=== PATIENT | female | born 1945 | race Caucasian/White ===

== ENCOUNTER 2018-05-05 21:13 | Inpatient (IN) | payer OTHER ==
--- NOTE | 2018-05-05 21:25 | EDPHY ---
H & P Time Seen by Provider: 05/05/18 21:25 Constitutional: Initial Vital Signs Temperature (C) 37.1 C 05/05/18 21:25 Heart Rate 93 05/05/18 21:25 Respiratory Rate 16 05/05/18 21:25 Blood Pressure 132/104 H 05/05/18 21:25 O2 Sat (%) 94 05/05/18 21:25 O2 Delivery Mode Room Air Allergies/Adverse Reactions: iodine [Iodine] Allergy (Severe, Verified 05/05/18 21:23) HIVES; THROAT SWELLING Sulfa (Sulfonamide Antibiotics) Allergy (Intermediate, Verified 05/05/18 21:23) GI UPSET Home Medications: Medication Instructions Recorded Aspirin [Amy Advanced] 1,000 mg PO 1200 PRN 05/05/18 Aspirin [Amy Advanced] 1,000 mg PO DAILY 05/05/18 Aspirin [Amy Advanced] 500 mg PO HS 05/05/18 Oxybutynin Chloride [Ditropan 5mg 5 mg PO TID 05/05/18 (RX)] Medical Decision Making ED Course/Re-evaluation: CHIEF COMPLAINT: MS Flare, weakness HISTORY OF PRESENT ILLNESS: The patient is a 72 y/o female with a history of MS arriving via EMS complaining of weakness and an MS flare. She reports that she has a mild exacerbation monthly and is followed by Dr. Collier, neurologist. However, the exacerbations have been worsening and more progressive for the last several months. She is not on any treatment for the MS as Dr. Collier told the patient that the steroids wouldn't work any more and she was allergic to the biological injectables. Yesterday she felt mostly normal and had mild weakness. When she woke up this morning she felt significantly more weak than normal. She had difficulty standing due to the weakness and has been unable to walk, which is abnormal. She reports that her right side is typically more weak than her left. She does take 1gm Aspirin daily for pain. No fever, headache, chest pain, shortness of breath, abdominal pain, urinary or bowel complaints. REVIEW OF SYSTEMS: A comprehensive 10 system review of systems is otherwise negative aside from elements mentioned in the history of present illness and medical decision making. PHYSICAL EXAM: HR, BP, O2 Sat, RR. Temp noted General Appearance: Unable to walk, alert, well hydrated, appropriate, and non- toxic appearing. Head: Atraumatic without scalp tenderness or obvious injury Eyes: Pupils equal, round, reactive to light and accommodation, EOMI, no trauma , no injection. Ears: Clear bilaterally, no perforation, normal landmarks Nose: Atraumatic, no rhinorrhea, clear. Throat: There is no erythema or exudates, no lesions, normal tonsils, mucus membranes moist. Neck: Supple, 2+ carotid upstroke, nontender, no lymphadenopathy. Respiratory: No retractions, no distress, no wheezes, and no accessory muscle use. Lungs are clear to auscultation bilaterally. Cardiovascular: Regular rate and rhythm, no murmurs, rubs, or gallops. Bilateral carotid, radial, dorsalis pedis, and posterior tibial pulses intact. Good capillary refill all extremities. Gastrointestinal: Abdomen is soft, nontender, non-distended, no masses, no rebound, no guarding, no peritoneal signs. Musculoskeletal: Normal active ROM of all extremities, atraumatic. Neurological: Global weakness, weak lower extremities, weak right arm, weak back muscles. Alert, appropriate, and interactive. The patient has normal DTRs and non-focal cranial nerves, and cerebellar exam. Skin: No rashes, good turgor, no nodules on palpation. Past medical history: MS Past surgical history: Denies Family history: Denies Social history: at bedside, lives in [place], retired DIAGNOSTICS/PROCEDURES/CRITICAL CARE TIME: Not indicated. DIFFERENTIAL DIAGNOSIS: The differential diagnosis for the patient's neurologic deficits included but was not limited to MS exacerbation, peripheral causes, central causes including CVA, TIA, electrolyte abnormalities and dehydration, cardiogenic causes, atypical causes like migraine syndrome. MEDICAL DECISION MAKING: The patient is a 72 y/o female with a history of MS arriving via EMS complaining of weakness and an MS flare. On exam she has global weakness including weakness ini her legs, right arm, and back muscles. This weakness is inhibiting her from walking. She reports that she can't take steroids as her neurologist, Dr. Collier, told her they wouldn't work any more. Labs ordered to ensure that there isn't an underlying infection or cause for the patient's weakness. 1gm Solu-Medrol and 1L IV NS administered. 213: I consulted with Dr. Grubbs, hospitalist, regarding this patient. She accepts admission of this patient. Neurology has been paged. 2135: I consulted with Dr. Quispe, neurologist from [facility], regarding this patient. He agrees with my plan to treat with Solu-Medrol 1000mg TID for three days, for the acute on chronic exacerbation. 2202: Reassessed patient and discussed plan for admission and Solu-Medrol. She is comfortable with this plan. Dr. Grubbs is in the room with the patient now. 2213: Reassessed patient, 40mg PO Protonix administered as she is taking over 1gm of Aspirin and I am now giving her steroids and has a BP with a systolic over 200. 10mg PO Zestril administered as her BP has a systolic pressure over 200. We will also place a catheter as she feels to weak to stand up to urinate. - Data Points Laboratory Results: Laboratory Results 05/05/18 21:43 05/05/18 21:43 05/05/18 05/05/18 21:43 21:43 WBC 8.03 10^3/uL 10^3/uL (3.80-9.50) RBC 3.88 10^6/uL L 10^6/uL (4.18-5.33) Hgb 12.5 g/dL L g/dL (12.6-16.3) Hct 36.7 % L % (38.0-47.0) MCV 94.6 fL fL (81.5-99.8) MCH 32.2 pg pg (27.9-34.1) MCHC 34.1 g/dL g/dL (32.4-36.7) RDW 15.4 % H % (11.5-15.2) Plt Count 316 10^3/uL 10^3/uL (150-400) MPV 11.7 fL fL (8.7-11.7) Neut % (Auto) 80.2 % H % (39.3-74.2) Lymph % (Auto) 9.0 % L % (15.0-45.0) [place] % (Auto) 9.1 % % (4.5-13.0) Eos % (Auto) 0.6 % % (0.6-7.6) Baso % (Auto) 1.0 % % (0.3-1.7) Nucleat RBC Rel Count 0.0 % % (0.0-0.2) Absolute Neuts (auto) 6.44 10^3/uL 10^3/uL (1.70-6.50) Absolute Lymphs (auto) 0.72 10^3/uL L 10^3/uL (1.00-3.00) Absolute Monos (auto) 0.73 10^3/uL 10^3/uL (0.30-0.80) Absolute Eos (auto) 0.05 10^3/uL 10^3/uL (0.03-0.40) Absolute Basos (auto) 0.08 10^3/uL 10^3/uL (0.02-0.10) Absolute Nucleated RBC 0.00 10^3/uL 10^3/uL (0-0.01) Immature Gran % 0.1 % % (0.0-1.1) Immature Gran # 0.01 10^3/uL 10^3/uL (0.00-0.10) Sodium 135 mEq/L mEq/L (135-145) Potassium 4.0 mEq/L mEq/L (3.5-5.2) Chloride 104 mEq/L mEq/L (97-110) Carbon Dioxide 24 mEq/l mEq/l (22-31) Anion Gap 7 mEq/L mEq/L (6-14) BUN 20 mg/dL mg/dL (7-23) Creatinine 0.7 mg/dL mg/dL (0.6-1.0) Estimated GFR > 60 Glucose 111 mg/dL H mg/dL (70-100) Calcium 9.0 mg/dL mg/dL (8.5-10.4) Medications Given: Methylprednisolone Sodium (Succinate 1,000 mg/ Dextrose) 100 mls @ 100 mls/hr IV EDNOW ONE Stop: 05/05/18 22:38 Last Admin: 05/05/18 22:03 Dose: 100 mls Discontinued Medications Sodium Chloride (Ns) 1,000 mls @ 0 mls/hr IV EDNOW ONE; Wide Open PRN Reason: Protocol Stop: 05/05/18 21:34 Last Admin: 05/05/18 21:52 Dose: 1,000 mls Departure - Departure Disposition: [facility] Acute Clinical Impression: Exacerbation of multiple sclerosis, Inability to walk Condition: Fair Report Scribed for: Gerardo Monte Report Scribed by: Cordelia Rocha Date of Report: 05/05/18 Time of Report: 21:26
[2018-05-05] MEDS ORDERED: NS 1,000 ML IV ONE (21:33)
[2018-05-05] MEDS ORDERED: methylPREDNISolone SOD SUCC 1,000 MG in D5W 100 ML IV ONE (21:39)
[2018-05-05] MEDS ORDERED: HYDROCODONE/APAP 5/325 TAB PO PRN (21:47)
[2018-05-05] MEDS ORDERED: PROMETHAZINE HCL 25 MG/ML INJ IVP PRN (21:47)
[2018-05-05] MEDS ORDERED: oxyCODONE IR 5 MG TAB PO PRN (21:47)
[2018-05-05] MEDS ORDERED: ONDANSETRON DISINTEGRATING 4 MG TAB PO PRN (21:47)
[2018-05-05] MEDS ORDERED: ONDANSETRON 4 MG/2 ML VIAL IVP PRN (21:47)
[2018-05-05] MEDS ORDERED: HYDROmorphONE/DILAUDID 1 MG/ML INJ IVP PRN (21:47)
[2018-05-05] MEDS ORDERED: PANTOPRAZOLE SODIUM 40 MG TAB PO ONE (22:12)
[2018-05-05 22:19] LABS: PLATELET COUNT 316 10^3/uL (150-400)
--- NOTE | 2018-05-05 22:33 | PDGENHP ---
History and Physical - Chief Complaint weakness - History of Present Illness 72 yo F with PMH of MS that has been present since she was in her 20s but has become progressive in the last 20 years presenting with 2 days of increasing weakness to the point where she is no longer able to even hold herself up. She states she has had similar bouts in the past, but never this severe or lasting this long. She did not have any preceding illness that she is aware of. She notes she has neurogenic bladder and issues with incontinence and retention and frequent UTIs, has had increased difficulty urinating today. She does have issues with frequent falls, she states she falls nearly daily, fell up to 5 times today. She uses a walker at baseline and has not had any fractures related to falls in the past. She did have a recent tooth infection that was treated with root canal, was started on abx but discontinued them due to feeling dizzy related to the medication. She does not have any pain or other sxs at the tooth anymore. Patient does have chronic pain and at home takes 2500mg aspirin daily for her pain, she denies having any stomach issues related to that or having a bleed in the past. She notes she is followed by neurology, Dr. Collier, she has been on medications for her MS in the past but had side effects or allergies to all of the meds so is no longer on any medication. She previously would do IV steroids with home health monthly and whenever she had a flare but she notes that her neurologist told her that steroids would no longer be effective for her so she is not doing that any longer. History Information - Allergies/Home Medication List Allergies/Adverse Reactions: iodine [Iodine] Allergy (Severe, Verified 05/05/18 21:23) HIVES; THROAT SWELLING Sulfa (Sulfonamide Antibiotics) Allergy (Intermediate, Verified 05/05/18 21:23) GI UPSET Home Medications: Aspirin [Amy Advanced] 1,000 mg PO 1200 PRN 05/05/18 [Last Taken Unknown] Aspirin [Amy Advanced] 1,000 mg PO DAILY 05/05/18 [Last Taken 05/05/18] Aspirin [Amy Advanced] 500 mg PO HS 05/05/18 [Last Taken Unknown] Oxybutynin Chloride [Ditropan 5mg (RX)] 5 mg PO TID 05/05/18 [Last Taken 08:00] I have personally reviewed and updated: family history, medical history, social history, surgical history - Past Medical History Additional medical history: MS x 50 years - Surgical History Reports: hysterectomy - Family History Positive for: cancer (lung cancer in mother), diabetes type I (brother) Additional family history: one sister and father with alcoholism, both parents - Social History Smoking Status: Former smoker Alcohol Use: Rarely Drug Use: None Additional social history: , lives independently with her Review of Systems Review of Systems: ROS: 10pt was reviewed & negative except for what was stated in HPI & below Physical Exam Physical Exam: Temp Pulse Resp BP Pulse Ox 37.1 C 92 18 200/155 H 96 05/05/18 21:25 05/05/18 22:03 05/05/18 22:03 05/05/18 22:03 05/05/18 22:03 Constitutional: chronically ill appearing, uncomfortable Eyes: PERRL, anicteric sclera Ears, Nose, Mouth, Throat: moist mucous membranes, hearing normal Cardiovascular: regular rate and rhythym, no murmur, rub, or gallop, No edema Respiratory: no respiratory distress, no rales or rhonchi Gastrointestinal: normoactive bowel sounds, soft, non-tender abdomen Genitourinary: no bladder tenderness Skin: warm, normal color Musculoskeletal: generalized weakness Neurologic: AAOx3, weakness Psychiatric: interacting appropriately, not anxious, depressed Lab Data & Imaging Review 05/05/18 21:43 05/05/18 21:43 WBC 8.03 10^3/uL (3.80-9.50) 05/05/18 21:43 RBC 3.88 10^6/uL (4.18-5.33) L 05/05/18 21:43 Hgb 12.5 g/dL (12.6-16.3) L 05/05/18 21:43 Hct 36.7 % (38.0-47.0) L 05/05/18 21:43 MCV 94.6 fL (81.5-99.8) 05/05/18 21:43 MCH 32.2 pg (27.9-34.1) 05/05/18 21:43 MCHC 34.1 g/dL (32.4-36.7) 05/05/18 21:43 RDW 15.4 % (11.5-15.2) H 05/05/18 21:43 Plt Count 316 10^3/uL (150-400) 05/05/18 21:43 MPV 11.7 fL (8.7-11.7) 05/05/18 21:43 Neut % (Auto) 80.2 % (39.3-74.2) H 05/05/18 21:43 Lymph % (Auto) 9.0 % (15.0-45.0) L 05/05/18 21:43 [place] % (Auto) 9.1 % (4.5-13.0) 05/05/18 21:43 Eos % (Auto) 0.6 % (0.6-7.6) 05/05/18 21:43 Baso % (Auto) 1.0 % (0.3-1.7) 05/05/18 21:43 Nucleat RBC Rel Count 0.0 % (0.0-0.2) 05/05/18 21:43 Absolute Neuts (auto) 6.44 10^3/uL (1.70-6.50) 05/05/18 21:43 Absolute Lymphs (auto) 0.72 10^3/uL (1.00-3.00) L 05/05/18 21:43 Absolute Monos (auto) 0.73 10^3/uL (0.30-0.80) 05/05/18 21:43 Absolute Eos (auto) 0.05 10^3/uL (0.03-0.40) 05/05/18 21:43 Absolute Basos (auto) 0.08 10^3/uL (0.02-0.10) 05/05/18 21:43 Absolute Nucleated RBC 0.00 10^3/uL (0-0.01) 05/05/18 21:43 Immature Gran % 0.1 % (0.0-1.1) 05/05/18 21:43 Immature Gran # 0.01 10^3/uL (0.00-0.10) 05/05/18 21:43 Sodium 135 mEq/L (135-145) 05/05/18 21:43 Potassium 4.0 mEq/L (3.5-5.2) 05/05/18 21:43 Chloride 104 mEq/L (97-110) 05/05/18 21:43 Carbon Dioxide 24 mEq/l (22-31) 05/05/18 21:43 Anion Gap 7 mEq/L (6-14) 05/05/18 21:43 BUN 20 mg/dL (7-23) 05/05/18 21:43 Creatinine 0.7 mg/dL (0.6-1.0) 05/05/18 21:43 Estimated GFR > 60 05/05/18 21:43 Glucose 111 mg/dL (70-100) H 05/05/18 21:43 Calcium 9.0 mg/dL (8.5-10.4) 05/05/18 21:43 Visualized and Interpreted Chest x-ray results: Yes Chest X-Ray results: no infiltrate Visualized and Interpreted EKG results: Yes EKG Interpretation: Positive for: normal sinsus rhythm Assessment & Plan Assessment: Exacerbation of multiple sclerosis (Acute) Inability to walk (Acute) 72 yo F with hx of MS presenting with generalized weakness in the setting of MS exacerbation # MS exacerbation: severe, unable to hold up her body or ambulate. No clear precipitant for this, no e/o infection currently but UA is still pending. Discussed with [facility] who recommend starting steroids for the acute component of her symptoms, starting methylprednisone 1000mg daily. Neuro to consult in am. # neurogenic bladder: currently having issues with retention, colby being placed , will continue oxybutynin # uncontrolled htn: in the setting of anxiety and pain, patient denies htn generally and not on any medications for htn, will start hydralazine prn, given lisinopril in ER # anxiety: patient appears anxious/depressed, presumably situational given her illness and overall condition, prn ativan # chronic pain: for which patient takes high dose aspirin daily at home, will hold especially given concurrent high dose steroids being administered, pain management with opiates as needed, starting protonix for GI protection # ppx: PPI, LMWH # DNR # IP status, will likely need > 48 hours stay for eval/mgmt of above Patient new to my care. Old records reviewed and summarized as above. Care plan reviewed with ER doctor, further hx obtained from patients present at bedside.
[2018-05-05] MEDS ORDERED: hydrALAZINE 20 MG/ML VIAL IVP PRN (22:43)
[2018-05-05] MEDS ORDERED: DIAZEPAM 5 MG/ML 1 ML SYR IVP PRN (22:44)
[2018-05-06] MEDS: ACETAMINOPHEN 325 MG TAB PO PRN ×2 (00:06→12:17)
--- NOTE | 2018-05-06 00:28 | HOSPPROG ---
Hospitalist Progress Note Assessment/Plan: XC: UA arguably infectious; in setting of weakness and bladder dysfunction I will start CTX 1 g qD and await culture results. Objective: Vital Signs Temp Pulse Resp BP Pulse Ox 37.3 C 88 16 183/85 H 95 05/05/18 23:35 05/05/18 23:35 05/05/18 23:35 05/05/18 23:35 05/05/18 23:35 05/04/18 05/05/18 05/06/18 05:59 05:59 05:59 Intake Total 1000 Balance 1000 ICD10 Worksheet Patient Problems: Problems Problem Status Onset Exacerbation of multiple sclerosis Acute Inability to walk Acute
[2018-05-06] MEDS ORDERED: PANTOPRAZOLE SODIUM 40 MG TAB PO ONE (01:30)
[2018-05-06 07:17] LABS: PLATELET COUNT 226 10^3/uL (150-400)
--- NOTE | 2018-05-06 08:55 | ASMTCMCOM ---
CM Note CM Note Notes: Patient admitted for for weakness/MS flare, found to have UTI. She has had MS for 50 years with disease progression in the last 20. For the last few days, she's experienced a flare lasting longer and more severely than normal. Patient is normally independent, lives w her . Uses walker at baseline. PT/OT have been ordered; CM will follow for discharge planning. Date Signed: 05/06/2018 08:55 AM Electronically Signed By:Ammy Hebert RN
[2018-05-06] MEDS ORDERED: methylPREDNISolone SOD SUCC 1 GM in D5W 100 ML IV SCH (09:00)
--- NOTE | 2018-05-06 09:43 | PDMN ---
Medical Necessity Medical necessity: Pt meets inpt criteria per MD order and Neurology GRG, Multiple Sclerosis, 3 days. 72 y/o w/hx MS presenting w/severe weakness, unable to hold self up or ambulate, in setting of MS exacerbation. Also, neurogenic bladder- having current issues w/retention, uncontrolled HTN (as high as 200/155 ) in setting of anxiety and pain, +UA. Neuro consult pending, IV ABX's, urine cultures pending, PT/OT evals pending, anticipate>2MN for ongoing eval/ management of above.
[2018-05-06] MEDS: PANTOPRAZOLE SODIUM 40 MG TAB PO SCH (10:49)
[2018-05-06] MEDS: OXYBUTYNIN CHLORIDE 5 MG TAB PO SCH ×3 (10:54→22:20)
--- NOTE | 2018-05-06 10:56 | GCON ---
[f rep st] CONSULTATION NEUROLOGY CONSULTATION. CHIEF COMPLAINT: Multiple sclerosis with generalized weakness. HISTORY OF PRESENT ILLNESS: Sera is a very pleasant 72-year-old lady followed by Dr. Dano Collier as an outpatient for advanced multiple sclerosis. She is currently not on any disease modifying the rapy. She has chronic right-sided hemiparesis. Yesterday, she started feeling unwell with general m alaise and superimposed generalized weakness over her chronic deficits and came to the emergency depa rtment. She was found to have a probable urinary tract infection, started on antibiotics, given flui ds, and now she is feeling better. No new focal deficits. She did receive 1 g of IV Solu-Medrol yes terday as well. She thinks this is helping. REVIEW OF SYSTEMS: Ten-point review of systems was done and only pertinent to the HPI. For past medical history, social history, family history, home medications, allergies, see Dr. Timmons son's H and P. PHYSICAL EXAM: VITAL SIGNS: Blood pressure 120/74, afebrile 36.6, saturating at 97% on room air. G ENERAL: She is very pleasant in no acute distress. HIGHER MENTAL FUNCTION: She is awake and alert. She is fluent in language and lucid. MOTOR EXAM: She has significant right-sided hemiparesis in t he right arm and right leg. There is some also motor impersistence that appears like tremor during e xtension of her upper extremities. No myoclonus or convulsive activity. IMPRESSION AND PLAN: 1. Advanced multiple sclerosis. 2. Urinary tract infection. Overall, her history is more suggestive of decompensation from infection rather than an MS exacerbati on. She does not complain of new focal symptoms, but more of a generalized weakness and malaise. Sh jacky does feel better with the IV Solu-Medrol. Therefore, we will complete 3 days of IV Solu-Medrol 1 g daily. I have written that order and discussed it with the primary hospitalist team. She will also be treated for a UTI, and given fluids. She will get dose #2 today and dose #3 of steroids tomorrow and complete the course. She can discharge home when cleared by hospital medicine from a general me dical standpoint. She will follow up with Dr. Collier as an outpatient. No further recommendation s. We will continue to follow as needed. Please do not hesitate to call for any changes in her neur ologic status or questions. Thank you for the consultation. Seventy total minutes floor time reviewing outpatient and inpatient records; over 50% in counseling a nd coordination of care. /[id number]/MODL
[2018-05-06] MEDS: methylPREDNISolone SOD SUCC 1 GM in D5W 100 ML IV SCH (11:37)
--- NOTE | 2018-05-06 13:38 | HOSPPROG ---
Hospitalist Progress Note Assessment/Plan: 72 yo F with hx of MS presenting with generalized weakness in the setting of MS exacerbation # MS exacerbation: severe, unable to hold up her body or ambulate on admission. Precipitant possibly UTI. -Neuro following -cont Solumedrol 1 gram daily x 3 day. Last dose is tomorrow #UTI -Await culture -cont Rocephin x 3 days # neurogenic bladder: currently having issues with retention, colby being placed , will continue oxybutynin # chronic pain: for which patient takes high dose aspirin daily at home, will hold especially given concurrent high dose steroids being administered, pain management with opiates as needed, starting protonix for GI protection # ppx: PPI, LMWH # DNR # IP status, continue Subjective: feeling less weak. Is able to sit on the chair. afebrile. Objective: Vital Signs Temp Pulse Resp BP Pulse Ox 36.8 C 80 14 151/80 H 97 05/06/18 12:00 05/06/18 12:00 05/06/18 12:00 05/06/18 12:00 05/06/18 12:00 Laboratory Results 05/06/18 04:46 05/06/18 04:46 05/05/18 05/06/18 05/07/18 05:59 05:59 05:59 Intake Total 1505 Output Total 1650 Balance -145 - Physical Exam Constitutional: no apparent distress Eyes: PERRL, EOMI Ears, Nose, Mouth, Throat: moist mucous membranes, hearing normal Cardiovascular: regular rate and rhythym, no murmur, rub, or gallop, No edema Respiratory: no respiratory distress, no rales or rhonchi, clear to auscultation Gastrointestinal: normoactive bowel sounds, soft, non-tender abdomen Skin: warm Musculoskeletal: generalized weakness Neurologic: AAOx3 Psychiatric: interacting appropriately, not anxious, not encephalopathic Lymph, Heme, Immunologic: No petechiae ICD10 Worksheet Patient Problems: Problems Problem Status Onset Exacerbation of multiple sclerosis Acute Inability to walk Acute
[2018-05-06] MEDS ORDERED: LISINOPRIL 20 MG TAB PO ONE (22:14)
[2018-05-07] MEDS: PANTOPRAZOLE SODIUM 40 MG TAB PO SCH (08:38)
[2018-05-07] MEDS: OXYBUTYNIN CHLORIDE 5 MG TAB PO SCH (08:39)
[2018-05-07 08:42] VITALS: BP 157/94
[2018-05-07] MEDS: methylPREDNISolone SOD SUCC 1 GM in D5W 100 ML IV SCH (09:28)
--- NOTE | 2018-05-07 11:42 | PDDCSUM ---
Discharge Summary Discharge Summary: 72 yo F with hx of MS presenting with generalized weakness in the setting of MS exacerbation. She was found to have a E-Coli UTI. She was treated with high dose steroids x 3 days. Neurology was consulted. She was treated with Rocephin x 3 days. She will be treated with 3 additional days of Keflex F/U: with her PCP next week DDX: # MS exacerbation vs MS decompensation from infection: resolved -severe, unable to hold up her body or ambulate on admission. Precipitant possibly UTI. -Neuro following -cont Solumedrol 1 gram daily x 3 day. Last dose is tomorrow #UTI -E-Coli -Rocephin x 3 days. Keflex x 3. She reports frequent UTI's and will f/u with her pcp for further mgmt # neurogenic bladder: continue oxybutynin. Required Kerr initially. This is being removed. # chronic pain: -Hold Aspirin x 3 days -cont Protonix x one week for GI protection Exam: NAD AAOX3 RRR CTA B S/NT/ND MEDS: SEE MED REC TOTAL TIME SPENT ON D/C IS 35 MINS. D/W NURSE
--- NOTE | 2018-05-07 11:53 | PDIAF ---
- Diagnosis Diagnosis: MS-exacerbation Code Status: Do Not Resuscitate - Medication Management Discharge Medications: electronically signed and located in the Home Medication List. - Orders Services needed: Home Care, Physical Therapy, Occupational Therapy Home Care Face to Face: I certify that this patient was under my care and that I had the required [id number] encounter meeting the encounter requirements on the discharge day. My findings support the fact that the patient is homebound as defined in Home Care Face to Face Continued: CMS Chapter 7 Medicare Benefits Manual 30.1.1 , The condition of the patient is such that there exists a normal inability to leave home and consequently, leaving home would require a considerable and taxing effort. Diet Recommendation: no restrictions on diet Diet Texture: Regular Texture Diet Additional Instructions: Activity: as tolerate F/u: with PCP next week. With Neuro at regular scheduled intervals. On f/u, you will also need to discuss if there is a need for blood pressure medications OK to restart Aspirin on 2/5 - Follow Up Care Current Providers and Referrals: Patient,NotPresent [Unknown] - As per Instructions
--- NOTE | 2018-05-07 13:54 | ASMTDCNOTE ---
Case Management Discharge Discharge Order Complete? Answers: Yes Patient to Obtain Answers: via Family Medications Transportation Arranged Answers: Family/Friends Transport will Pick (Date 05/07/2018 12:00 AM & Time) Family Notified Answers: Yes Notes: by pt. Discharge Comments Notes: Spoke with pt in the room. Pt refused HHC stating it was too invasive and she preferred to follow up with an OP PT who specializes in MS. No CM needs noted at this time. CM available should needs change. Date Signed: 05/07/2018 01:53 PM Electronically Signed By:Sanna Still
--- NOTE | 2018-05-07 13:55 | ASMTLACE ---
[facility] Length of stay for Answers: 1 day current admission Acuity / Level of Answers: Yes Care: Did the patient have an inpatient admission? Comorbidities - select Answers: Other Notes: Multiple Sclerosis all that apply # of Emergency department Answers: 1-2 visits in the last 6 months Score: 6 Date Signed: 05/07/2018 01:54 PM Electronically Signed By:Sanna Still
--- NOTE | 2018-05-07 13:59 | ASDISCHSUM ---
Discharge Information Plan Status:Home with No Needs Medically Cleared to Leave:05/06/2018 Discharge Date:05/06/2018 CM D/C Disposition:Home, Routine, Self-Care ADT D/C Disposition:[id number] Projected Discharge Date:05/06/2018 Transportation at D/C:Family Discharge Delay Reason: Follow-Up Date:05/06/2018 Discharge Slot: Final Diagnosis:UTI, MS Exacerbation Placement Information Patient Contact Information Contact Name:BERNICE Relationship: Address:[address] City:[place] Alternate Phone: [facility]/Zip Code:[place] [address] Email: Financial Information Financial Class:Medicare Advantage Plans Primary Plan Desc:[facility] ADVANTAGE PLANS Primary Plan Number:[id number] Secondary Plan Desc: Secondary Plan Number: Assessment Information LACE LACE Length of stay for Answers: 1 day current admission Acuity / Level of Answers: Yes Care: Did the patient have an inpatient admission? Comorbidities - select Answers: Other Notes: Multiple Sclerosis all that apply # of Emergency department Answers: 1-2 visits in the last 6 months Score: 6 Date Signed: 05/07/2018 01:54 PM Electronically Signed By:Sanna Still [facility] Progress Note CM Note CM Note Notes: Patient admitted for for weakness/MS flare, found to have UTI. She has had MS for 50 years with disease progression in the last 20. For the last few days, she's experienced a flare lasting longer and more severely than normal. Patient is normally independent, lives w her . Uses walker at baseline. PT/OT have been ordered; CM will follow for discharge planning. Date Signed: 05/06/2018 08:55 AM Electronically Signed By:Ammy Hebert RN Case Management Discharge Plan Note Case Management Discharge Discharge Order Complete? Answers: Yes Patient to Obtain Answers: via Family Medications Transportation Arranged Answers: Family/Friends Transport will Pick (Date 05/07/2018 12:00 AM & Time) Family Notified Answers: Yes Notes: by pt. Discharge Comments Notes: Spoke with pt in the room. Pt refused HHC stating it was too invasive and she preferred to follow up with an OP PT who specializes in MS. No CM needs noted at this time. CM available should needs change. Date Signed: 05/07/2018 01:53 PM Electronically Signed By:Sanna Still Intervention Information Intervention Type:*IM-Signed Date of Service:05/07/2018 01:58 PM Patient Type:Inpatient Staff Member:Sanna Still Hours: Discipline:Show Card Writer Severity: Comment:
== END 2018-05-07 14:12 | disposition home health service (06) | DRG 59 ==
LOC: EDUNIT# → F3N 23:29
PROVIDERS: ADMIT Internal Medicine; ATTEND Internal Medicine
DX: G35 Multiple sclerosis (principal); N39.0 Urinary tract infection, site not specified; B96.20 Unspecified Escherichia coli [E. coli] as the cause of diseases classified elsewhere; N31.9 Neuromuscular dysfunction of bladder, unspecified; G89.29 Other chronic pain; F41.9 Anxiety disorder, unspecified; I10 Essential (primary) hypertension; G81.91 Hemiplegia, unspecified affecting right dominant side; Z87.891 Personal history of nicotine dependence; Z66 Do not resuscitate; Z79.82 Long term (current) use of aspirin
CPT/HCPCS: 96374; 97116-GP; 97161-GP; 97167-GO; 97530-GO; 97535-GO; J0696; J2930

== ENCOUNTER → 2018-08-27 | Outpatient (CLI) | payer OTHER | LOC: FIMAGING 13:24 | PROVIDERS: ATTEND Physician Assistant Medical | DX: G35 Multiple sclerosis (principal) | CPT/HCPCS: 70551-PN ==

== ENCOUNTER 2018-09-01 14:51 | Inpatient (IN) | payer OTHER ==
[2018-09-01] MEDS ORDERED: NS 1,000 ML IV ONE (14:56)
--- NOTE | 2018-09-01 15:02 | EDPHY ---
H & P Time Seen by Provider: 09/01/18 14:53 HPI/ROS: CHIEF COMPLAINT: Increasing weakness, history of progressive advanced multiple sclerosis HISTORY OF PRESENT ILLNESS: The patient has a history of progressive advanced multiple sclerosis and presents the emergency department with increasing weakness. The patient has had multiple falls at home. She denies any traumatic injury. She denies any fever, cough or congestion. She denies symptoms of dysuria or frequency. The patient was seen by her neurologist several days ago. The patient denies any chest pain or shortness of breath. She recently underwent an MRI of her brain and cervical spine which demonstrated fairly advanced evidence of demyelination. REVIEW OF SYSTEMS: A comprehensive 10 point review of systems is otherwise negative aside from elements mentioned in the history of present illness. Source: Patient Exam Limitations: No limitations - Medical/Surgical History Hx Asthma: No Hx Chronic Respiratory Disease: No Hx Diabetes: No Hx Cardiac Disease: No Hx Renal Disease: No Hx Cirrhosis: No Hx Alcoholism: No Hx HIV/AIDS: No Hx Splenectomy or Spleen Trauma: No Other PMH: MS - Social History Smoking Status: Former smoker - Physical Exam Exam: General Appearance: Alert, no distress Eyes: Pupils equal and round no pallor or injection ENT, Mouth: Dry mucous membranes Respiratory: There are no retractions, lungs are clear to auscultation Cardiovascular: Regular rate and rhythm Gastrointestinal: Abdomen is soft and nontender, no masses, bowel sounds normal Neurological: 4 to 5-out of 5 strength noted globally in all 4 extremities Skin: Warm and dry, no rashes Musculoskeletal: Neck is supple nontender Extremities: symmetrical, full range of motion Constitutional: Initial Vital Signs Temperature (C) 38.6 C H 09/01/18 14:57 Heart Rate 83 09/01/18 14:57 Respiratory Rate 18 09/01/18 14:57 Blood Pressure 139/83 H 09/01/18 14:57 O2 Sat (%) 96 09/01/18 14:57 O2 Delivery Mode Room Air Allergies/Adverse Reactions: iodine [Iodine] Allergy (Severe, Verified 05/05/18 21:23) HIVES; THROAT SWELLING Sulfa (Sulfonamide Antibiotics) Allergy (Intermediate, Verified 05/05/18 21:23) GI UPSET Home Medications: Medication Instructions Recorded Oxybutynin Chloride [Ditropan] 5 mg PO TID 05/05/18 Cephalexin [Keflex (*)] 500 mg PO TID #12 cap 05/07/18 Pantoprazole Sodium [Protonix 40mg 40 mg PO DAILY #7 tab 05/07/18 (*)] Medical Decision Making ED Course/Re-evaluation: I reviewed the results of the patient's prior MRI performed earlier this week. Patient had an IV established. She received a L of normal saline. Screening laboratory studies including CBC, serum chemistries and urinalysis have been ordered. I consulted with Dr. Blu Gayle from Neurology who informs me the patient is not a candidate for steroids with her particular form of multiple sclerosis. He does recommend admission to the hospital he will see the patient in consultation. Search for reversible causes including urinary tract infection and dehydration will be undertaken. I consulted with Dr. Cat from the hospitalist service who will admit the patient primarily. The patient did have a Kerr catheter placed per her request. Urinalysis does demonstrate evidence of an infection. I have ordered 1 g of ceftriaxone. The patient has no evidence of septic physiology. The patient will be admitted to a medical floor bed in stable condition. Differential Diagnosis: Differential diagnosis considered includes worsening multiple sclerosis, urinary tract infection, dehydration, metabolic abnormality - Data Points Laboratory Results: Laboratory Results 09/01/18 14:51 09/01/18 14:51 09/01/18 09/01/18 09/01/18 15:40 14:51 14:51 WBC 10.33 10^3/uL H 10^3/uL (3.80-9.50) RBC 3.77 10^6/uL L 10^6/uL (4.18-5.33) Hgb 12.7 g/dL g/dL (12.6-16.3) Hct 37.4 % L % (38.0-47.0) MCV 99.2 fL fL (81.5-99.8) MCH 33.7 pg pg (27.9-34.1) MCHC 34.0 g/dL g/dL (32.4-36.7) RDW 14.0 % % (11.5-15.2) Plt Count 272 10^3/uL 10^3/uL (150-400) MPV 10.4 fL fL (8.7-11.7) Neut % (Auto) 83.4 % H % (39.3-74.2) Lymph % (Auto) 6.2 % L % (15.0-45.0) [place] % (Auto) 8.0 % % (4.5-13.0) Eos % (Auto) 1.0 % % (0.6-7.6) Baso % (Auto) 1.1 % % (0.3-1.7) Nucleat RBC Rel Count 0.0 % % (0.0-0.2) Absolute Neuts (auto) 8.62 10^3/uL H 10^3/uL (1.70-6.50) Absolute Lymphs (auto) 0.64 10^3/uL L 10^3/uL (1.00-3.00) Absolute Monos (auto) 0.83 10^3/uL H 10^3/uL (0.30-0.80) Absolute Eos (auto) 0.10 10^3/uL 10^3/uL (0.03-0.40) Absolute Basos (auto) 0.11 10^3/uL H 10^3/uL (0.02-0.10) Absolute Nucleated RBC 0.00 10^3/uL 10^3/uL (0-0.01) Immature Gran % 0.3 % % (0.0-1.1) Immature Gran # 0.03 10^3/uL 10^3/uL (0.00-0.10) Sodium 138 mEq/L mEq/L (135-145) Potassium 3.8 mEq/L mEq/L (3.5-5.2) Chloride 107 mEq/L mEq/L (97-110) Carbon Dioxide 24 mEq/l mEq/l (22-31) Anion Gap 7 mEq/L mEq/L (6-14) BUN 14 mg/dL mg/dL (7-23) Creatinine 0.6 mg/dL mg/dL (0.6-1.0) Estimated GFR > 60 Glucose 81 mg/dL mg/dL (70-100) Calcium 9.3 mg/dL mg/dL (8.5-10.4) Urine Color YELLOW Urine Appearance MODERATELY TURBID Urine pH 5.0 (5.0-7.5) Ur Specific [place] 1.015 (1.002-1.030) Urine Protein 1+ H (NEGATIVE) Urine Ketones 1+ H (NEGATIVE) Urine Blood 2+ H (NEGATIVE) Urine Nitrate POSITIVE H (NEGATIVE) Urine Bilirubin NEGATIVE (NEGATIVE) Urine Urobilinogen NEGATIVE EU EU (0.2-1.0) Ur Leukocyte Esterase 3+ H (NEGATIVE) Urine RBC Pending Urine WBC Pending Ur Epithelial Cells Pending Urine Glucose NEGATIVE (NEGATIVE) Medications Given: Discontinued Medications Sodium Chloride (Ns) 1,000 mls @ 0 mls/hr IV EDNOW ONE; Wide Open PRN Reason: Protocol Stop: 09/01/18 14:57 Last Admin: 09/01/18 15:58 Dose: 1,000 mls Departure - Departure Disposition: [facility] Inpatient Acute Clinical Impression: Exacerbation of multiple sclerosis, Urinary tract infection Condition: Fair
[2018-09-01 15:44] LABS: PLATELET COUNT 272 10^3/uL (150-400)
[2018-09-01] MEDS ORDERED: LORazepam 0.5 MG TAB PO PRN (16:47)
[2018-09-01] MEDS ORDERED: ONDANSETRON DISINTEGRATING 4 MG TAB PO PRN (16:47)
[2018-09-01] MEDS ORDERED: ONDANSETRON 4 MG/2 ML VIAL IVP PRN (16:47)
[2018-09-01] MEDS ORDERED: ACETAMINOPHEN 325 MG TAB PO PRN (16:47)
[2018-09-01] MEDS ORDERED: LORazepam 2 MG/ML INJ IVP PRN (16:47)
[2018-09-01] MEDS ORDERED: HYDROmorphONE/DILAUDID 1 MG/ML INJ IVP PRN (16:47)
[2018-09-01] MEDS ORDERED: oxyCODONE IR 5 MG TAB PO PRN (16:47)
--- NOTE | 2018-09-01 17:07 | NEUROPROG ---
Assessment: I will formally see pt tomorrow morning but if anything needed sooner please call ([phone]). Objective: Vital Signs Temp Pulse Resp BP Pulse Ox 37.7 C 95 19 144/122 H 98 09/01/18 17:00 09/01/18 17:00 09/01/18 17:00 09/01/18 17:00 09/01/18 17:00 Allergies/Adverse Reactions: iodine [Iodine] Allergy (Severe, Verified 05/05/18 21:23) HIVES; THROAT SWELLING Sulfa (Sulfonamide Antibiotics) Allergy (Intermediate, Verified 05/05/18 21:23) GI UPSET
--- NOTE | 2018-09-01 18:16 | PDGENHP ---
History and Physical - Chief Complaint increasing weakness - History of Present Illness 73yo F with advanced MS not on therapy presents with increasing weakness. She is frustrated and doesn't want to talk to me, stating "I've already told people this." She is able to report that she thinks she's having an MS flare related to an infection. She denies fevers, chills, shortness of breath, cough, n/v/d, urinary symptoms. She typically voids spontaneously at home but wonders if she should straight cath. She appears uncomfortable. When I ask her what's bothering her she says her back but does not want any pain medications or muscle relaxers. In the ED, a straight cath was done which showed infected appearing urine. She also fevered. She was given a dose of IV ceftriaxone and is being admitted for further care and management. Dr Gayle of neurology has also been consulted. Of note, she recently saw her outpatient neurologist, Shiva Craig. Had brain and C-spine MRIs which reportedly showed old demyelination but nothing acute. She is not on any disease modifying medications. History Information - Allergies/Home Medication List Allergies/Adverse Reactions: iodine [Iodine] Allergy (Severe, Verified 05/05/18 21:23) HIVES; THROAT SWELLING Sulfa (Sulfonamide Antibiotics) Allergy (Intermediate, Verified 05/05/18 21:23) GI UPSET Home Medications: Aspirin 500 mg PO TID 09/01/18 [Last Taken 08/31/18] Cetirizine [ZyrTEC 10 mg (*)] 10 mg PO DAILY 09/01/18 [Last Taken 08/31/18] Losartan Potassium [Cozaar 50 mg (*)] 50 mg PO DAILY 09/01/18 [Last Taken ] Oxybutynin Chloride [Ditropan 5mg (RX)] 5 mg PO TID 09/01/18 [Last Taken ] I have personally reviewed and updated: family history, medical history, social history, surgical history - Past Medical History Additional medical history: multiple sclerosis, neurogenic bladder, several UTIs , HTN, HLD, GERD, esophageal stricture, cataracts, osteoporosis, seborrheic dermatitis - Surgical History Additional surgical history: hysterectomy, parotidectomy, left breast lumpectomy , right breast biopsy - Family History Positive for: cancer (lung cancer in mother), diabetes type I (brother) Additional family history: one sister and father with alcoholism, both parents - Social History Smoking Status: Former smoker Alcohol Use: None Drug Use: None Additional social history: , lives independently with her Review of Systems Review of Systems: ROS: 10pt was reviewed & negative except for what was stated in HPI & below Physical Exam Physical Exam: Temp Pulse Resp BP Pulse Ox 37.7 C 95 19 144/122 H 98 09/01/18 17:00 09/01/18 17:00 09/01/18 17:00 09/01/18 17:00 09/01/18 17:00 Constitutional: uncomfortable Eyes: PERRL, anicteric sclera, EOMI Ears, Nose, Mouth, Throat: moist mucous membranes, hearing normal, ears appear normal, no oral mucosal ulcers Cardiovascular: regular rate and rhythym, no murmur, rub, or gallop, No edema Respiratory: no respiratory distress, no rales or rhonchi, clear to auscultation Gastrointestinal: normoactive bowel sounds, soft, non-tender abdomen, no palpable masses Genitourinary: colby in urethra (cloudy urine in bag) Neurologic: AAOx3, other (she will not let me do a thorough neurologic exam) Lab Data & Imaging Review 09/01/18 14:51 09/01/18 14:51 WBC 10.33 10^3/uL (3.80-9.50) H 09/01/18 14:51 RBC 3.77 10^6/uL (4.18-5.33) L 09/01/18 14:51 Hgb 12.7 g/dL (12.6-16.3) 09/01/18 14:51 Hct 37.4 % (38.0-47.0) L 09/01/18 14:51 MCV 99.2 fL (81.5-99.8) 09/01/18 14:51 MCH 33.7 pg (27.9-34.1) 09/01/18 14:51 MCHC 34.0 g/dL (32.4-36.7) 09/01/18 14:51 RDW 14.0 % (11.5-15.2) 09/01/18 14:51 Plt Count 272 10^3/uL (150-400) 09/01/18 14:51 MPV 10.4 fL (8.7-11.7) 09/01/18 14:51 Neut % (Auto) 83.4 % (39.3-74.2) H 09/01/18 14:51 Lymph % (Auto) 6.2 % (15.0-45.0) L 09/01/18 14:51 [place] % (Auto) 8.0 % (4.5-13.0) 09/01/18 14:51 Eos % (Auto) 1.0 % (0.6-7.6) 09/01/18 14:51 Baso % (Auto) 1.1 % (0.3-1.7) 09/01/18 14:51 Nucleat RBC Rel Count 0.0 % (0.0-0.2) 09/01/18 14:51 Absolute Neuts (auto) 8.62 10^3/uL (1.70-6.50) H 09/01/18 14:51 Absolute Lymphs (auto) 0.64 10^3/uL (1.00-3.00) L 09/01/18 14:51 Absolute Monos (auto) 0.83 10^3/uL (0.30-0.80) H 09/01/18 14:51 Absolute Eos (auto) 0.10 10^3/uL (0.03-0.40) 09/01/18 14:51 Absolute Basos (auto) 0.11 10^3/uL (0.02-0.10) H 09/01/18 14:51 Absolute Nucleated RBC 0.00 10^3/uL (0-0.01) 09/01/18 14:51 Immature Gran % 0.3 % (0.0-1.1) 09/01/18 14:51 Immature Gran # 0.03 10^3/uL (0.00-0.10) 09/01/18 14:51 Sodium 138 mEq/L (135-145) 09/01/18 14:51 Potassium 3.8 mEq/L (3.5-5.2) 09/01/18 14:51 Chloride 107 mEq/L (97-110) 09/01/18 14:51 Carbon Dioxide 24 mEq/l (22-31) 09/01/18 14:51 Anion Gap 7 mEq/L (6-14) 09/01/18 14:51 BUN 14 mg/dL (7-23) 09/01/18 14:51 Creatinine 0.6 mg/dL (0.6-1.0) 09/01/18 14:51 Estimated GFR > 60 09/01/18 14:51 Glucose 81 mg/dL (70-100) 09/01/18 14:51 Calcium 9.3 mg/dL (8.5-10.4) 09/01/18 14:51 Urine Color YELLOW 09/01/18 15:40 Urine Appearance MODERATELY TURBID 09/01/18 15:40 Urine pH 5.0 (5.0-7.5) 09/01/18 15:40 Ur Specific [place] 1.015 (1.002-1.030) 09/01/18 15:40 Urine Protein 1+ (NEGATIVE) H 09/01/18 15:40 Urine Ketones 1+ (NEGATIVE) H 09/01/18 15:40 Urine Blood 2+ (NEGATIVE) H 09/01/18 15:40 Urine Nitrate POSITIVE (NEGATIVE) H 09/01/18 15:40 Urine Bilirubin NEGATIVE (NEGATIVE) 09/01/18 15:40 Urine Urobilinogen NEGATIVE EU (0.2-1.0) 09/01/18 15:40 Ur Leukocyte Esterase 3+ (NEGATIVE) H 09/01/18 15:40 Urine RBC 5-10 /hpf (0-3) H 09/01/18 15:40 Urine WBC 50-182 /hpf (0-3) H 09/01/18 15:40 Ur Epithelial Cells TRACE /lpf (NONE-1+) 09/01/18 15:40 Urine Bacteria 3+ /hpf (NONE SEEN) H 09/01/18 15:40 Urine Mucus TRACE /lpf (NONE-1+) 09/01/18 15:40 Urine Glucose NEGATIVE (NEGATIVE) 09/01/18 15:40 Assessment & Plan Assessment: 73yo F with advanced MS not on therapy presents with increasing weakness found to have UTI. Plan: 1. UTI: Has history of E coli and Staph urinary infections in past that are mckinney- sensitive. - Ceftriaxone 1g q24h - Follow urine and blood cultures 2. Fever: Likely due to above. She is not septic. Will provide tylenol PRN. Holding on fluids as she is not tachycardic and BP is elevated. 3. Generalized weakness: I could not get a good assessment of this as she refused my physical exam. I suspect she is having a pseudo-MS flare in the setting of infection. She reportedly had brain MRI recently that had no acute/ new lesions. - PT/OT 4. Neurogenic bladder: She voids spontaneously at home but likely has chronic urinary retention leading to infection. - Colby catheter in place now - Continue home oxybutynin 5. Hypertension - Resume home losartan in the AM 6. Multiple sclerosis: Followed by Shiva Craig. Not on medications for this. - Neurology has been consulted VTE ppx: high risk, LMWH Code: DNR/DNI. She has a MOST form from 06/2017 that denotes DNR and comfort measures only. She confirmed the DNR. I briefly discussed comfort measures with her this evening; she states she wants to get her infection treated but then ended the conversation. Will required additional discussion in future. Dispo: admit under observation
[2018-09-01] MEDS: OXYBUTYNIN CHLORIDE 5 MG TAB PO SCH (21:10)
[2018-09-01] MEDS: ASPIRIN 500 MG PO SCH (21:10)
[2018-09-02 05:58] LABS: PLATELET COUNT 227 10^3/uL (150-400)
[2018-09-02] MEDS: OXYBUTYNIN CHLORIDE 5 MG TAB PO SCH ×3 (10:03→21:00)
[2018-09-02] MEDS: LOSARTAN POTASSIUM 50 MG TAB PO SCH (10:03)
[2018-09-02] MEDS: ENOXAPARIN 40 MG/0.4 ML SYR SC SCH (10:03)
[2018-09-02] MEDS: CETIRIZINE 10 MG TAB PO SCH (10:03)
--- NOTE | 2018-09-02 10:24 | NEUROPROG ---
Assessment: [id number] - Neurology Consult: - CC: Generalized weakness in setting of Chronic Multiple Sclerosis, UTI - HPI: 09/02/18: Pt with multiple sclerosis had recently seen her outpatient neurology provider, Denis Craig, on 08/31/18. Review of his note at that time reported pt had just had brain/cervical MRI wo con which were essentially stable from 2012 but consistent with multiple sclerosis. No gadolinium contrast given but since no new white matter lesions noted and no clear new focal deficits acute attack seemed unlikely. At that visit pt declined disease modifying therapy or referral to multiple sclerosis expert. The next day pt noted generalized weakness consistent with symptomsI. Pt presented to [facility] ER where a UA was consistent with UTI and pt had fever. Pt admitted for treatment of UTI and given her weakness caused her to have problems with home ADLs. I saw pt on 09/02 and noted generalized weakness on neurologic exam. Pts symptoms of increasing generalized weakness are most likely due to UTI causing pseudo-MS flare. I agree with abx treatment. I would not recommend any steroids given suspected active infection as cause of symptoms. Pt should have PT/OT/Speech evaluation to determine any rehab needs and ensure able to perform ADLs prior to discharge. If pt fails to improve after treating UTI we could always consider a brain/cervical MRI with contrast to assess for any active enhancement. - PMHx: multiple sclerosis with neurogenic bladder, recurrent UTIs, HTN, HLD, GERD , esophageal stricture, cataracts, osteoporosis, seborrheic dermatitis - SHx: former smoker FHx: cancer, DM - ROS: Pt denied acute fever, total vision loss, active severe chest pain, respiratory failure, total body severe rash, total bowel/bladder incontinence, psychosis, active seizures, or active bleeding - O: VS reviewed General: somnolent Eyes: Fundoscopic exam not able to visualize optic disks CV: Heart RRR, no murmur, no carotid bruit Lungs: Clear to auscultation bilaterally, no rhonchi or rales Neuro: - Mental: . Oriented x person/place/date . concentration appears normal . speech fluency/comprehension normal . memory appears normal . fund of knowledge appear intact - Cranial Nerves: . II: PERRL, blurry vision in all visual cole . III/IV/: EOMI, no nystagmus, normal smooth pursuits, no Ptosis . V: facial sensation intact to LT . VII: face symmetric to eye closure and smile . VIII: hearing intact to conversation . IX/X: uvula raises symmetrically . XI: SCM 5/5 B/L strength . XII: tongue protrudes midline w/nl strength - Motor: . Tone: normal tone in all 4 extremity . Strength: generalized weakness - Reflexes: B/L bic 2/4 - Sensory: all 4 extremity intact to light touch - Coord: no significant coordination issues noted but pt very weak so testing difficult - Gait: deferred - Labs: 09/01/18- WBC 10.33H, Chem wnl, UA nitrate 2+H and LE 3+ - Rads: 08/27/18- Brain MRI wo: Extensive white matter disease bilaterally, both supratentorial and infratentorial with a stable appearance. This can be seen with the given diagnosis of multiple sclerosis. Small vessel ischemic disease or other postinfectious/postinflammatory etiology could also be included in the differential. - 08/27/18- Cervical MRI wo: Multiple areas of abnormal signal intensity in the cervical cord suggesting sequela from prior demyelinating disease, Multilevel degenerative disk and degenerative joint disease cervical spine - Assessment: 1. Multiple Sclerosis - 2. UTI causing pseudo-exacerbation of MS leading to generalized weakness - Plan: - Agree with treating UTI as this seems to be cause of her worsening MS related weakness - PT/OT/Speech to determine any rehab needs - F/U with Denis Craig 4-8 weeks after hospital discharge - Neurology will sign off but will be happy to become reinvolved if needed Objective: Vital Signs Temp Pulse Resp BP Pulse Ox 37.6 C 85 18 145/75 H 92 09/02/18 07:51 09/02/18 07:51 09/02/18 07:51 09/02/18 10:03 09/02/18 07:51 Laboratory Results 09/02/18 04:46 09/02/18 04:46 09/01/18 09/02/18 09/03/18 05:59 05:59 05:59 Intake Total 1100 Output Total 1700 Balance -600 Allergies/Adverse Reactions: iodine [Iodine] Allergy (Severe, Verified 05/05/18 21:23) HIVES; THROAT SWELLING Sulfa (Sulfonamide Antibiotics) Allergy (Intermediate, Verified 05/05/18 21:23) GI UPSET
[2018-09-02] MEDS: ASPIRIN 500 MG PO SCH ×2 (11:56→16:48)
--- NOTE | 2018-09-02 13:59 | HOSPPROG ---
Hospitalist Progress Note Assessment/Plan: 73yo F with advanced MS not on therapy presents with increasing weakness found to have UTI. First encounter, chart reviewed. D/W Dr Gayle. #UTI: - Has history of E coli and Staph urinary infections in past that are mckinney- sensitive. - Ceftriaxone 1g q24h - Follow urine and blood cultures # Fever: -Likely due to above. -She is not septic. Will provide tylenol PRN. Holding on fluids as she is not tachycardic and BP is elevated. # Generalized weakness: -refused my physical exam. -I suspect she is having a pseudo-MS flare in the setting of infection. -She reportedly had brain MRI recently that had no acute/new lesions. - PT/OT -D/W Dr Gayle, no steriods at this time # Neurogenic bladder: -She voids spontaneously at home but likely has chronic urinary retention leading to infection. - Colby catheter in place now - Continue home oxybutynin # Hypertension - Resume home losartan # Multiple sclerosis: - Followed by Shiva Craig. Not on medications for this. - Neurology has seen VTE ppx: high risk, LMWH Code: DNR/DNI. She has a MOST form from 06/2017 that denotes DNR and comfort measures only. Dispo: change to inpt status requires further care in hospital setting await urine culture PT/OT Subjective: Minimal interaction. No pain. Objective: Vital Signs Temp Pulse Resp BP Pulse Ox 37.9 C 88 20 109/73 96 09/02/18 11:24 09/02/18 11:24 09/02/18 11:24 09/02/18 11:24 09/02/18 11:24 Laboratory Results 09/02/18 04:46 09/02/18 04:46 09/01/18 09/02/18 09/03/18 05:59 05:59 05:59 Intake Total 1100 Output Total 1700 400 Balance -600 -400 - Physical Exam Constitutional: appears nourished, not in pain, chronically ill appearing Eyes: PERRL, anicteric sclera, EOMI Ears, Nose, Mouth, Throat: moist mucous membranes, hearing normal, ears appear normal Cardiovascular: regular rate and rhythym, No JVD, No edema Respiratory: no respiratory distress, no rales or rhonchi, reduced air movement Gastrointestinal: normoactive bowel sounds, No tenderness, No ascites Genitourinary: colby in urethra Skin: warm, normal color, No mottled Musculoskeletal: normal joint ROM, no joint effusions, generalized weakness Neurologic: AAOx3, weakness Psychiatric: not anxious, poor insight, poor judgement, No interacting appropriately ICD10 Worksheet Patient Problems: Problems Problem Status Onset Exacerbation of multiple sclerosis Acute Inability to walk Acute Urinary tract infection Acute
--- NOTE | 2018-09-02 14:48 | ASMTCMCOM ---
CM Note CM Note Notes: Reviewed chart, pt admitted for increased weakness from her usual state of advanced MS. Pt was found to have a UTI and is being treated with IV abx. Attempted to meet with pt but she was sleeping. PT recommending Inpt rehab at this time, SERVICE OFFICER and OT still pending. Pt lives at home with her , CM w/f for needs. DC Plan: TBD Date Signed: 09/02/2018 02:47 PM Electronically Signed By:Nishi Levy RN
[2018-09-02] MEDS ORDERED: BISACODYL 10 MG SUPP PR PRN (16:12)
[2018-09-02] MEDS ORDERED: LACTULOSE 20 GM/30 ML UDCUP PO PRN (16:12)
[2018-09-02] MEDS ORDERED: MAGNESIUM HYDROXIDE 30 ML UDCUP PO PRN (16:12)
[2018-09-02] MEDS ORDERED: POLYETHYLENE GLYCOL 3350 17 GM PKT PO PRN (16:12)
--- NOTE | 2018-09-02 17:46 | PDMN ---
Medical Necessity Medical necessity: Change to inpt as of 09/02/18, meets inpt criteria per MD order and MCG M-300, Urinary Tract Infection, 73 y/o w/adv MS not on therapy admitted w/UTI and likely pseudo-MS flare in setting of infection. Upgraded to inpt for persistent fevers, hypotensive at 94/52, urine cx's +E.Coli, bl cx's pending, hx E.Coli and Staph urinary infections in past that are mckinney-sensitive. Neuro consult . Est LOS>2MN for further IV ABX's and ongoing eval/management of above.
[2018-09-02] MEDS: ACETAMINOPHEN 500 MG TAB PO PRN (21:00)
[2018-09-02] MEDS: SENNOSIDES/DOCUSATE SODIUM TAB PO SCH (21:01)
[2018-09-03] MEDS: ACETAMINOPHEN 500 MG TAB PO PRN ×2 (06:02→22:41)
[2018-09-03] MEDS: ENOXAPARIN 40 MG/0.4 ML SYR SC SCH (08:33)
[2018-09-03] MEDS: OXYBUTYNIN CHLORIDE 5 MG TAB PO SCH ×3 (08:34→22:41)
[2018-09-03] MEDS: LOSARTAN POTASSIUM 50 MG TAB PO SCH (08:34)
[2018-09-03] MEDS: CETIRIZINE 10 MG TAB PO SCH (08:34)
[2018-09-03] MEDS: SENNOSIDES/DOCUSATE SODIUM TAB PO SCH (08:34)
--- NOTE | 2018-09-03 11:30 | HOSPPROG ---
Hospitalist Progress Note Assessment/Plan: 73yo F with advanced MS not on therapy presents with increasing weakness found to have UTI. #UTI: - Has history of E coli and Staph urinary infections in past that are mckinney- sensitive. - Ceftriaxone 1g q24h - urine cx E.Coli # Fever: -Likely due to above. -She is not septic. Will provide tylenol PRN. Holding on fluids as she is not tachycardic and BP is elevated. # Generalized weakness: -better today -She reportedly had brain MRI recently that had no acute/new lesions. - PT/OT -D/W Dr Gayle, no steriods at this time # Neurogenic bladder: -She voids spontaneously at home but likely has chronic urinary retention leading to infection. - Kerr catheter in place now - Continue home oxybutynin # Hypertension - Resume home losartan # Multiple sclerosis: - Followed by Shiva Craig. Not on medications for this. - Neurology has seen VTE ppx: high risk, LMWH Code: DNR/DNI. She has a MOST form from 06/2017 that denotes DNR and comfort measures only. Dispo: inpt status requires further care in hospital setting cont IV abx PT/OT Subjective: Up in chair. Feeling better today. No pain. Objective: Vital Signs Temp Pulse Resp BP Pulse Ox 37.4 C 79 16 101/60 93 09/03/18 07:39 09/03/18 07:39 09/03/18 07:39 09/03/18 07:39 09/03/18 07:39 Laboratory Results 09/02/18 04:46 09/02/18 04:46 09/02/18 09/03/18 09/04/18 05:59 05:59 05:59 Intake Total 1100 1250 55 Output Total 1700 1150 Balance -600 100 55 - Physical Exam Constitutional: appears nourished, chronically ill appearing Eyes: PERRL, anicteric sclera Ears, Nose, Mouth, Throat: moist mucous membranes, hearing normal Cardiovascular: No JVD, No edema Respiratory: no respiratory distress, reduced air movement Gastrointestinal: No tenderness, No ascites Skin: warm, normal color Musculoskeletal: no joint effusions, generalized weakness Neurologic: AAOx3 Psychiatric: not anxious, not encephalopathic, poor insight ICD10 Worksheet Patient Problems: Problems Problem Status Onset Exacerbation of multiple sclerosis Acute Inability to walk Acute Urinary tract infection Acute
--- NOTE | 2018-09-03 15:45 | ASMTCMCOM ---
CM Note CM Note Notes: PT/OT continue to rec inpatient rehab, [facility] rec inpatient rehab/HC. Spoke with pt and Epifanio about d/c planning, they do want to be considered for the [facility] inpatient rehab. The rehab consult order is in. Pt reports she wants to get stronger before going home and does not think home with HC would be the safest d/c. Pt is improving daily so we can see where pt is Wednesday when the inpatient rehab will be able to assess her. D/c plan of care: TBD, home care vs. inpatient rehab Date Signed: 09/03/2018 03:44 PM Electronically Signed By:SURESH Lerner
[2018-09-04] MEDS: SENNOSIDES/DOCUSATE SODIUM TAB PO SCH ×3 (00:40→20:14)
[2018-09-04] MEDS: ACETAMINOPHEN 500 MG TAB PO PRN ×2 (08:00→20:16)
[2018-09-04] MEDS: CETIRIZINE 10 MG TAB PO SCH (08:00)
[2018-09-04] MEDS: ENOXAPARIN 40 MG/0.4 ML SYR SC SCH (08:00)
[2018-09-04] MEDS: LOSARTAN POTASSIUM 50 MG TAB PO SCH (08:01)
[2018-09-04] MEDS: OXYBUTYNIN CHLORIDE 5 MG TAB PO SCH ×3 (08:01→22:00)
--- NOTE | 2018-09-04 12:35 | HOSPPROG ---
Hospitalist Progress Note Assessment/Plan: 73yo F with advanced MS not on therapy presents with increasing weakness found to have UTI. #UTI: - Has history of E coli and Staph urinary infections in past that are mckinney- sensitive. - Ceftriaxone 1g q24h - urine cx E.Coli - DC colby # Fever: -Likely due to above. -She is not septic. Will provide tylenol PRN. Holding on fluids as she is not tachycardic and BP is elevated. # Generalized weakness: -better today -She reportedly had brain MRI recently that had no acute/new lesions. - PT/OT - no steriods, appreciate neurology consult # Neurogenic bladder: - She voids spontaneously at home but likely has chronic urinary retention leading to infection. - Colby catheter DC - Continue home oxybutynin # Hypertension - Resume home losartan # Multiple sclerosis: - Followed by Shiva Craig. Not on medications for this. - Neurology has seen VTE ppx: high risk, LMWH Code: DNR/DNI. She has a MOST form from 06/2017 that denotes DNR and comfort measures only. Dispo: inpt status requires further care in hospital setting cont IV abx PT/OT inpt rehab consult pending Subjective: Up in chair. Still feeling weak. No pain. Objective: Vital Signs Temp Pulse Resp BP Pulse Ox 36.8 C 66 16 111/57 L 92 09/04/18 07:35 09/04/18 07:35 09/04/18 07:35 09/04/18 07:35 09/04/18 07:35 Laboratory Results 09/02/18 04:46 09/02/18 04:46 09/03/18 09/04/18 09/05/18 05:59 05:59 05:59 Intake Total 1250 555 55 Output Total 1150 1650 500 Balance 100 -9463 -804 - Physical Exam Constitutional: appears nourished, chronically ill appearing Eyes: PERRL, anicteric sclera Ears, Nose, Mouth, Throat: moist mucous membranes, hearing normal Cardiovascular: No JVD, No edema Respiratory: no respiratory distress, reduced air movement Gastrointestinal: No tenderness, No ascites Genitourinary: colby in urethra Skin: warm, normal color Musculoskeletal: no joint effusions, generalized weakness Neurologic: AAOx3 Psychiatric: not anxious, not encephalopathic ICD10 Worksheet Patient Problems: Problems Problem Status Onset Exacerbation of multiple sclerosis Acute Inability to walk Acute Urinary tract infection Acute
[2018-09-04] MEDS: BACLOFEN 10 MG TAB PO PRN (22:48)
[2018-09-05] MEDS: OXYBUTYNIN CHLORIDE 5 MG TAB PO SCH ×3 (09:18→20:50)
[2018-09-05] MEDS: ENOXAPARIN 40 MG/0.4 ML SYR SC SCH (09:19)
[2018-09-05] MEDS: CETIRIZINE 10 MG TAB PO SCH (09:19)
[2018-09-05] MEDS: SENNOSIDES/DOCUSATE SODIUM TAB PO SCH ×2 (09:19→20:25)
--- NOTE | 2018-09-05 09:24 | HOSPPROG ---
Hospitalist Progress Note Assessment/Plan: 73yo F with advanced MS not on therapy presents with increasing weakness found to have UTI. 1st encounter chart reviewed. #UTI -on ceftriaxone-patient has received 4 doses -blood cultures show no growth # Fever -none further # Generalized weakness -most likely exacerbated in the setting of urinary tract infection causing MS flare - # Neurogenic bladder -on oxybutynin -recommending she talk w her PCP, urologist about possible placement of suprapubic catheter -has seen Dr Guzman in the past, recommending she make an appt w him prior # Hypertension - losartan # Multiple sclerosis - Followed by Shiva Craig. #plan: awaiting IP rehab, encouraged patient to see Dr Guzman, make an appt. Also, to have Shiva Craig talk w Dr Guzman about the MS and it's advancement. Subjective: Sera is feeling very weak, but stronger. Objective: Vital Signs Temp Pulse Resp BP Pulse Ox 37.1 C 66 16 100/53 L 95 09/05/18 07:52 09/05/18 07:52 09/05/18 07:52 09/05/18 07:52 09/05/18 07:52 Laboratory Results 09/02/18 04:46 09/02/18 04:46 09/04/18 09/05/18 09/06/18 05:59 05:59 05:59 Intake Total 555 555 Output Total 1650 1750 Balance -1095 -1195 - Physical Exam Constitutional: no apparent distress, chronically ill appearing Eyes: PERRL Ears, Nose, Mouth, Throat: hearing normal Cardiovascular: regular rate and rhythym Respiratory: no respiratory distress Skin: warm Musculoskeletal: generalized weakness Neurologic: AAOx3 Psychiatric: interacting appropriately ICD10 Worksheet Patient Problems: Problems Problem Status Onset Exacerbation of multiple sclerosis Acute Urinary tract infection Acute Inability to walk Acute
[2018-09-05] MEDS: LOSARTAN POTASSIUM 50 MG TAB PO SCH (10:44)
--- NOTE | 2018-09-05 15:47 | ASMTCMCOM ---
CM Note CM Note Notes: Per Anu at [facility], they will not have a bed available this week. Patient very disappointed. I spoke w she and her Epifanio and explained that they could choose another [facility] facility or SNF. She was again disappointed as they do not want to go to [place] or [facility] for IPR. They agreed w referral to [facility] and [facility] and will let us know which facility they choose. Case Management will follow. Date Signed: 09/05/2018 03:46 PM Electronically Signed By:Ammy Hebert RN
[2018-09-05] MEDS: BACLOFEN 10 MG TAB PO PRN (20:50)
[2018-09-05] MEDS: ACETAMINOPHEN 500 MG TAB PO PRN (20:50)
[2018-09-06] MEDS: ACETAMINOPHEN 500 MG TAB PO PRN (06:20)
[2018-09-06 07:25] VITALS: BP 124/66
--- NOTE | 2018-09-06 09:05 | HOSPPROG ---
Hospitalist Progress Note Assessment/Plan: 73yo F with advanced MS not on therapy presents with increasing weakness found to have UTI. #UTI -on ceftriaxone-patient has received 5 doses -blood cultures show no growth # Fever -none further # Generalized weakness -most likely exacerbated in the setting of urinary tract infection causing MS flare - # Neurogenic bladder -on oxybutynin -recommending she talk w her PCP, urologist about possible placement of suprapubic catheter -has seen Dr Guzman in the past, recommending she make an appt w him prior -colby was placed in due to retention, will leave in at dc -she is unable to self-catheterize due to significant weakness # Hypertension - losartan # Multiple sclerosis - Followed by Shiva Craig. #plan: SNF today Subjective: Sera has no complaints, is feeling better today. Objective: Vital Signs Temp Pulse Resp BP Pulse Ox 36.5 C 57 L 16 124/66 H 93 09/06/18 07:22 09/06/18 07:22 09/06/18 07:22 09/06/18 07:22 09/06/18 07:22 Laboratory Results 09/02/18 04:46 09/02/18 04:46 09/05/18 09/06/18 09/07/18 05:59 05:59 05:59 Intake Total 555 Output Total 1750 1430 Balance -1195 -1430 - Physical Exam Constitutional: no apparent distress, appears nourished, not in pain Eyes: PERRL Ears, Nose, Mouth, Throat: hearing normal Cardiovascular: regular rate and rhythym Respiratory: no respiratory distress Genitourinary: colby in urethra Skin: warm Musculoskeletal: generalized weakness Neurologic: AAOx3 Psychiatric: interacting appropriately ICD10 Worksheet Patient Problems: Problems Problem Status Onset Exacerbation of multiple sclerosis Acute Urinary tract infection Acute Inability to walk Acute
[2018-09-06] MEDS: OXYBUTYNIN CHLORIDE 5 MG TAB PO SCH (09:06)
[2018-09-06] MEDS: CETIRIZINE 10 MG TAB PO SCH (09:06)
[2018-09-06] MEDS: ENOXAPARIN 40 MG/0.4 ML SYR SC SCH (09:06)
[2018-09-06] MEDS: SENNOSIDES/DOCUSATE SODIUM TAB PO SCH (09:06)
[2018-09-06] MEDS: LOSARTAN POTASSIUM 50 MG TAB PO SCH (09:07)
--- NOTE | 2018-09-06 09:39 | PDIAF ---
- Diagnosis Diagnosis: MS Flare, UTI, urinary retention Code Status: Do Not Resuscitate - Medication Management Discharge Medications: electronically signed and located in the Home Medication List. PICC Care - Routine: N/A - Orders Services needed: Physical Therapy, Occupational Therapy Diet Recommendation: no restrictions on diet Diet Texture: Regular Texture Diet Kerr: Yes Additional Instructions: follow up with Dr Dane Craig 4-8 weeks after discharge talk umesh Vela and Dr Guzman about possible placement of a suprapubic catheter due to your urinary retention take good care of yourself - Labs/Radiology BMP Date: 09/12/18 - Follow Up Care Current Providers and Referrals: Patient,NotPresent [Unknown] - As per Instructions Shiva Craig PA [Physician Checker] - Jodie Guzman MD [Medical Doctor] -
--- NOTE | 2018-09-06 10:19 | GDS ---
[f rep st] DISCHARGE SUMMARY DISCHARGE DIAGNOSES: 1. Urinary tract infection. 2. Fever. 3. Generalized weakness. 4. Neurogenic bladder. 5. Hypertension. 6. Multiple sclerosis. CONSULTATION: Dr. Blu Gayle. HISTORY OF PRESENT ILLNESS: Briefly, the patient is a 73-year-old female with advanced MS, not on th erapy. She presented with significant weakness and was noted to have a urinary tract infection. She was treated with ceftriaxone. She is markedly better. She will go to [facility] for strengthening. HOSPITAL COURSE: 1. Urinary tract infection. She has received full treatment. Blood cultures show no growth. 2. Fever, none further. 3. Generalized weakness. This is most likely exacerbated in the setting of a urinary tract infectio n causing multiple sclerosis flare. 4. Neurogenic bladder, on oxybutynin. I recommended she talk with her PCP, urologist, and neurologi st about possible placement of suprapubic catheter, it is likely that she will get recurrent urinary tract infections due to urinary retention. She is unable to self-catheterize due to significant weak ness. 5. Hypertension, stable on losartan. 6. Multiple sclerosis, followed by Shiva Craig, physician quality control assistant. DISCHARGE CONDITION: Stable. Blood pressure is 124/66, respiratory rate of 16, pulse 57, temperatur e 36.5 Celsius, oxygen levels on room air 93%. MEDICATIONS AT DISCHARGE: Please see the EMR. DISCHARGE INSTRUCTIONS: 1. To follow up with Dr. Guzman and to make appointment prior to her discharge for close followup. I suspect she will need a suprapubic catheter. 2. Follow up with Dane Craig physician quality control assistant, in about 4 to 8 weeks. Greater than 30 minutes discharging and coordinating her care. Copy requested to: TANIA Leblanc /[id number]/MODL
--- NOTE | 2018-09-06 10:50 | ASMTDCNOTE ---
Case Management Discharge Discharge Order Complete? Answers: Yes Patient to Obtain Answers: Other Notes: via [facility] Medications Transportation Arranged Answers: Other Notes: [facility] wheelchair van Transport will Pick (Date 09/06/2018 02:00 PM & Time) Faxed Final Orders Answers: Yes Agency/Facility Transfer Answers: Yes Report Printed & Faxed to Receiving Agency Family Notified Answers: Yes Notes: Discharge Comments Notes: Pt is being d/c'd to [facility] today. Mariana at [facility] has arranged wheelchair van to pick her up at 14:00. Pt notified her via phone. Per Frida Cornejo NP, pt is to make follow-up appointment with Dr. Guzman (urology) to determine whether or not suprapubic catheter placement is warranted for the future, given her chronic UTIs. Date Signed: 09/06/2018 10:49 AM Electronically Signed By:Mariana Flynn
--- NOTE | 2018-09-06 10:51 | ASDISCHSUM ---
Discharge Information Plan Status:SNF Medically Cleared to Leave: Discharge Date:09/06/2018 02:25 PM CM D/C Disposition: ADT D/C Disposition:[facility] Facility Projected Discharge Date:09/06/2018 11:00 AM Transportation at D/C: Discharge Delay Reason: Follow-Up Date:09/06/2018 11:00 AM Discharge Slot: Final Diagnosis: Placement Information Referral Type:*Long-Term/SNF Referral ID:[id number] Provider Name:[facility] Address 1:[address] Address 2: City:[place] Selection Factors: State:[place] Patient Contact Information Contact Name:BERNICE Relationship: Address:[address] City:[place] Alternate Phone: State/Zip Code:[place] [address] Email: Financial Information Financial Class:Medicare Advantage Plans Primary Plan Desc:[facility] [employer] Primary Plan Number:[id number] Secondary Plan Desc: Secondary Plan Number: Assessment Information LACE LACE Length of stay for Answers: 4-6 days current admission Acuity / Level of Answers: Yes Care: Did the patient have an inpatient admission? Comorbidities - select Answers: History of falls all that apply Opioid dependence / Chronic pain Other Notes: MS; HTN; HLD # of Emergency department Answers: 1-2 visits in the last 6 months Score: 16 Date Signed: 09/06/2018 10:50 AM Electronically Signed By:Mariana Gilman.RN [facility] CM Progress Note CM Note CM Note Notes: Reviewed chart, pt admitted for increased weakness from her usual state of advanced MS. Pt was found to have a UTI and is being treated with IV abx. Attempted to meet with pt but she was sleeping. PT recommending Inpt rehab at this time, [facility] and OT still pending. Pt lives at home with her , ROBERT w/f for needs. DC Plan: TBD Date Signed: 09/02/2018 02:47 PM Electronically Signed By:Nishi Levy RN [facility] CM Progress Note CM Note CM Note Notes: PT/OT continue to rec inpatient rehab, [facility] rec inpatient rehab/HC. Spoke with pt and Epifanio about d/c planning, they do want to be considered for the [facility] inpatient rehab. The rehab consult order is in. Pt reports she wants to get stronger before going home and does not think home with HC would be the safest d/c. Pt is improving daily so we can see where pt is Wednesday when the inpatient rehab will be able to assess her. D/c plan of care: TBD, home care vs. inpatient rehab Date Signed: 09/03/2018 03:44 PM Electronically Signed By:SURESH Lerner [facility] CM Progress Note CM Note CM Note Notes: Per Anu at [facility], they will not have a bed available this week. Patient very disappointed. I spoke w she and her Epifanio and explained that they could choose another [facility] facility or SNF. She was again disappointed as they do not want to go to [place] or [facility] for IPR. They agreed w referral to [facility] and [facility] and will let us know which facility they choose. Case Management will follow. Date Signed: 09/05/2018 03:46 PM Electronically Signed By:Ammy Hebert RN Case Management Discharge Plan Note Case Management Discharge Discharge Order Complete? Answers: Yes Patient to Obtain Answers: Other Notes: via [facility] Medications Transportation Arranged Answers: Other Notes: [facility] wheelchair van Transport will Pick (Date 09/06/2018 02:00 PM & Time) Faxed Final Orders Answers: Yes Agency/Facility Transfer Answers: Yes Report Printed & Faxed to Receiving Agency Family Notified Answers: Yes Notes: Discharge Comments Notes: Pt is being d/c'd to [facility] today. Mariana at [facility] has arranged wheelchair van to pick her up at 14:00. Pt notified her via phone. Per Frida Cornejo NP, pt is to make follow-up appointment with Dr. Guzman (urology) to determine whether or not suprapubic catheter placement is warranted for the future, given her chronic UTIs. Date Signed: 09/06/2018 10:49 AM Electronically Signed By:Mariana Flynn Intervention Information
== END 2018-09-06 14:25 | DRG 690 ==
LOC: EDUNIT# → F3N 16:53
PROVIDERS: ADMIT Internal Medicine; ATTEND Internal Medicine
DX: N39.0 Urinary tract infection, site not specified (principal); G35 Multiple sclerosis; E86.9 Volume depletion, unspecified; N31.9 Neuromuscular dysfunction of bladder, unspecified; I10 Essential (primary) hypertension; E78.5 Hyperlipidemia, unspecified; K21.9 Gastro-esophageal reflux disease without esophagitis; M81.0 Age-related osteoporosis without current pathological fracture; Z66 Do not resuscitate; Z87.891 Personal history of nicotine dependence; Z80.1 Family history of malignant neoplasm of trachea, bronchus and lung; Z83.3 Family history of diabetes mellitus
CPT/HCPCS: 92507-GN; 92523-GN; 96365; 97110-GP; 97112-GP; 97116-GP; 97162-GP; 97166-GO; 97530-GO; 97530-GP; 97535-GO; G0378; J0696; J1650